=== PATIENT | male | born 1985 | race Caucasian/White ===

== ENCOUNTER 2025-03-05 23:39 | Emergency (ER) | payer OTHER ==
[~2025-03-05] VITALS: Ht 165.1 cm; Wt 55.0 kg
[2025-03-06 00:17] VITALS: BP 156/89
== END 2025-03-06 00:16 | disposition other institution, planned readmission (95) ==
LOC: ED 23:39
DX: Z02.89 Encounter for other administrative examinations (principal)
CPT/HCPCS: 99283

== ENCOUNTER 2025-03-06 18:06 | Emergency (ER) | payer OTHER ==
[~2025-03-06] VITALS: Ht 165.1 cm; Wt 55.0 kg
--- OUTSIDE RECORDS SUMMARY | 2025-03-06 18:13 | XMS ---
PreManage Notification: RUKHSANA RHODES Security Pretzel Twister Events No recent Security Events currently on file CRITERIA MET - [facility] - 2 Visits in 30 Days CARE PROVIDERS There are no care providers on record at this time. Garry has no Care Guidelines for this patient. [facility] (12 MO.) [facility] NOTE: Visits indicate total known visits. ED/C VISIT TRACKING (12 MO.) 03/06/2025 18:07 [facility] COMPLAINT: - MEDICAL CLEARANCE 03/05/2025 23:41 MALIK Rojas [place] TYPE: Emergency COMPLAINT: - MEDICAL CLEARANCE INPATIENT VISIT TRACKING (12 MO.) No inpatient visits to display in this time frame [email or web address]
[2025-03-06 18:50] LABS: BASOPHILS 0.3 % (0-2); EOSINOPHILS 1.6 % (0-6); HEMATOCRIT 43.9 % (35.0-50.0); HEMOGLOBIN 15.2 g/dL (12.0-18.0); LYMPHOCYTES 14.3 % (24-44); MCH 28.2 (27-36); MCHC 34.6 g/dl (30-36); MCV 81.5 fl (81-99); MONOCYTES 4.9 % (0-12); NEUTROPHILS 78.9 % (39-80); PLATELET COUNT 497 K/uL (140-440); RBC 5.39 M/ul (4.3-5.7)
[2025-03-06 19:16] LABS: ACETAMINOPHEN 0 ug/mL (10-30); ALBUMIN 3.6 g/dL (3.4-5.0); ALCOHOL, MEDICAL <3 ng/dL (<3); ALKALINE PHOSPHATASE 89 U/L (46-116); ALT (SGPT) 37 U/L (14-59); ANION GAP 12.9 (7-21); AST (SGOT) 25 U/L (15-37); BILIRUBIN, TOTAL 0.4 mg/dL (0.2-1.0); BUN/CREATININE RATIO 11.39 (6.0-28.6); CARBON DIOXIDE 25 mmol/L (21-32); CHLORIDE 101 mmol/L (98-107); CREATININE, SERUM 0.79 mg/dL (0.70-1.30); GLOMERULAR FILTRATION RATE,EST 116 mL/min (>60); POTASSIUM 3.9 mmol/L (3.5-5.1); PROTEIN, TOTAL 7.2 g/dL (6.4-8.2); SALICYLATE 0.6 mg/dL (2.8-20.0); TSH, 3RD GENERATION 0.614 uIU/mL (0.358-3.740); UREA NITROGEN 9 mg/dL (7-18)
[2025-03-07 08:20] LABS: BILIRUBIN, URINE NEGATIVE (negative); BLOOD/HGB, URINE NEGATIVE (Negative); KETONE, URINE NEGATIVE (Negative); LEUK ESTERASE, URINE NEGATIVE (negative); NITRITE, URINE NEGATIVE (negative)
[2025-03-07 09:03] LABS: AMPHETAMINES, URINE POSITIVE (NEGATIVE); BARBITURATES, URINE NEGATIVE (NEGATIVE); BENZODIAZEPINE, URINE NEGATIVE (NEGATIVE); BUPRENORPHINE, URINE NEGATIVE (NEGATIVE); CANNABINOID, URINE POSITIVE (NEGATIVE); COCAINE, URINE NEGATIVE (NEGATIVE); ECSTASY, URINE POSITIVE (NEGATIVE); FENTANYL, URINE POSITIVE (NEGATIVE); METHADONE, URINE NEGATIVE (NEGATIVE); OPIATES, URINE NEGATIVE (NEGATIVE); OXYCODONE, URINE NEGATIVE (NEGATIVE); PHENCYCLIDINE, URINE NEGATIVE (NEGATIVE)
[2025-03-07] MEDS ORDERED: OLANZapine 10 MG TABDIS PO ONE (11:30)
[2025-03-07] MEDS ORDERED: diphenhydrAMINE HCL 50 MG/ML VIAL IM ONE (11:45)
[2025-03-07] MEDS ORDERED: LORazepam 2 MG/ML VIAL IM ONE (11:45)
[2025-03-08] MEDS ORDERED: OLANZapine 10 MG TABDIS PO ONE (08:00)
[2025-03-08] MEDS ORDERED: LORazepam 1 MG TAB PO ONE (08:00)
[2025-03-09] MEDS ORDERED: LORazepam 1 MG TAB PO ONE ×2 (07:45→17:15)
[2025-03-09] MEDS ORDERED: OLANZapine 10 MG TABDIS PO ONE ×2 (07:45→17:15)
[2025-03-10 05:54] VITALS: BP 117/71
== END 2025-03-10 05:56 ==
LOC: ED 18:06
PROVIDERS: Emergency Medicine
DX: R45.851 Suicidal ideations (principal); F32.A Depression, unspecified
CPT/HCPCS: 36415; 80053; 80307; 81003; 84443; 85025; 96372; 99285; A9270; A9270-GY; G0480; J1200; J2060; Q3014; U0002